=== PATIENT | female | born 2000 | race Caucasian/White ===

== ENCOUNTER → 2019-06-24 11:42 | Outpatient (CLI) | payer OTHER, SELFPAY ==
--- NOTE | 2019-06-24 11:49 | XR_ITS ---
PROCEDURE: XR CERVICAL SPINE 3V CLINICAL INDICATION: NECK PAIN COMPARISON: No exams were available for comparison FINDINGS: There is reversal of the cervical lordosis at the C4-C5 level. The disc spaces are well preserved. No fracture or dislocation. No significant degenerative change, lytic lesion, or blastic lesion. No cervical rib. IMPRESSION: Reversal of lordosis which could be due to patient positioning or muscle spasm otherwise negative Dictated by: Mike Rivera MD 06/24/2019 12:50 Electronically signed by Mike Rivera MD in [place] 06/24/2019 12:50
== END ==
PROVIDERS: PCP Family Medicine; Visit Provider Physician Assistant
DX: M54.2 Cervicalgia (principal)
CPT/HCPCS: 72040

== ENCOUNTER 2019-08-04 13:00 | Outpatient (RCR) | payer OTHER, SELFPAY ==
--- NOTE | 2019-07-26 15:21 | HMH.PTOPEV ---
PT Outpatient Evaluation Rehab PT Outpatient Evaluation Start: 07/26/19 14:31 Freq: Status: Active Protocol: Document 07/26/19 14:31 PATRICIA (Rec: 07/26/19 15:18 JENNIFERVINICIUS [id number]) Electronically Signed By Pedro Reyna, PT 07/26/19 14:31 Outpatient Therapy Subjective History Subjective History Patient is a 18 year old female presenting to outpatient PT with reports of cervical spine and B upper trapezius mm pain of insidious onset starting approximately 3 years ago. Symptoms have progressively gotten worse over the past year. No radicular symptoms to report. Poor postural awareness noted. Most recent imaging indicates reversal of cervical lordosis. Comorbidities include asthma. Chief Complaint Pain,Spasms Symptom Type Ache Symptoms Relieved By Heat Symptoms Aggravated By Sitting,Physical Activity, Lifting Prior Functional Limitations Reaching,Lifting,Housework, Sleeping,Sitting,Recreation Activity,Bending/Stooping Current Functional Limitations Reaching,Lifting,Housework, Sleeping,Sitting,Recreation Activity,Bending/Stooping Symptom Description Constant but Variable Level of pain today (0-10) 3 Pain scale - at its best (0-10) 2 Pain scale - at its worst (0-10) 7 Cervical Eval Palpation Cervical Muscles R Suboccipital,L Suboccipital, R CT Junction,L CT Junction,R Upper Trapezius,L Upper Trapezius Cervical/Thoracic Palpation Findings Tenderness Posture Head/C-Spine Posture Sitting Position C-Spine Flattened Head/C-Spine Posture Standing Position C-Spine Flattened Flexibility Deficits Upper Trapezius Muscle Length (R) Moderate Tightness,(L) Moderate Tightness Levaetor Scapulae Muscle Length (R) Moderate Tightness,(L) Moderate Tightness Pectoralis Minor Muscle Length (R) Moderate Tightness,(L) Moderate Tightness Passive Joint Mobility Cervical PIVM WNL: R OA L OA R AA L AA R C2/3
== END 2019-08-04 13:05 | disposition home or self-care (01) ==
LOC: PT 13:00
PROVIDERS: PCP Family Medicine; Visit Provider Physician Assistant
DX: M53.82 Other specified dorsopathies, cervical region (principal)
CPT/HCPCS: 20560; 97010; 97014; 97110; 97140; 97163; G0283

== ENCOUNTER → 2019-11-28 16:56 | Outpatient (CLI) | payer OTHER, SELFPAY ==
[2019-11-28 19:31] LABS: HCG,Quantitative 7502 mIU/ml (0-5.42)
== END ==
PROVIDERS: Visit Provider Obstetrics & Gynecology
DX: Z32.00 Encounter for pregnancy test, result unknown (principal)
CPT/HCPCS: 36415; 84702

== ENCOUNTER → 2019-12-09 14:11 | Outpatient (CLI) | payer OTHER, SELFPAY ==
--- NOTE | 2019-12-09 14:11 | US_ITS ---
PROCEDURE: US OB TRANSVAGINAL CLINICAL INDICATION: US OB Dates COMPARISON: No exams were available for comparison FINDINGS: An intrauterine gestational sac is present with a pole with a crown-rump length of 0.98cm correlating to gestational age of 7weeks 1day. heart tones are present with an FHR of 142bpm. Yolk sac is noted. There is a 2.9 cm right ovarian corpus luteum cyst IMPRESSION: Live IUP at 7 weeks 1 day Estimated due date by Ultrasound is 07/26/2020 Dictated by: Mike Rivera MD 12/09/2019 16:39 Electronically signed by Mike Rivera MD in [place] 12/09/2019 16:39
== END ==
PROVIDERS: PCP Family Medicine; Visit Provider Obstetrics & Gynecology
DX: O26.841 Uterine size-date discrepancy, first trimester (principal)
CPT/HCPCS: 76817

== ENCOUNTER → 2019-12-13 10:55 | Outpatient (CLI) | payer OTHER, SELFPAY ==
[2019-12-13 11:29] LABS: Basophils # 0.1 K/mm3 (0-0.2); Basophils % 0.6 % (0.1-2.0); Eosinophils # 0.4 K/mm3 (0.0-0.4); Eosinophils % 5.2 % (0.1-12.0); Hematocrit 41.2 % (37.0-47.0); Hemoglobin 14.3 g/dL (12.2-16.2); Lymphocytes # 1.6 K/mm3 (0.7-4.5); Mean Corpuscular HGB Conc 34.7 g/dL (31.8-35.4); Mean Corpuscular Hemoglobin 31.9 pg (27.0-31.2); Mean Corpuscular Volume 91.9 fl (81-99); Mean Platelet Volume 7.8 fl (7.4-10.4); Monocytes # 0.4 K/mm3 (0.1-1.0); Monocytes % 4.2 % (1.7-9.3); Neutrophils # 5.9 K/mm3 (1.8-7.8); Neutrophils % 70.9 % (37.0-80.0); Platelet Count 205 K/mm3 (142-424); Red Blood Count 4.48 M/mm3 (4.20-5.40); Red Cell Distribution Width 12.7 % (11.5-17.5); White Blood Count 8.3 K/mm3 (4.5-13.0)
[2019-12-13 15:59] LABS: Amphetamine/Metha Screen,Urine Negative ng/ml (<1000); Barbiturates Screen,Urine Negative ng/ml (<200); Benzodiazepines Screen,Urine Negative ng/ml (<200); Cannabinoid Screen,Urine Negative ng/ml (<50); Cocaine Screen,Urine Negative ng/ml (<300); Methadone Screen,Urine Negative ng/ml (<300); Opiate Screen,Urine Negative ng/ml (<300); Phencyclidine Screen,Urine Negative ng/ml (<25)
[2019-12-14 11:29] LABS: HIV Screen 4th Generation wRfx Non Reactive (Non Reactive)
[2019-12-14 13:30] LABS: Hepatitis B Surface Antigen Negative (Negative); Hepatitis C Antibody 0.1 s/co ratio (0.0-0.9); Rubella Antibodies, IgG 4.94 index (Immune >0.99)
[2019-12-15 09:39] LABS: Rapid Plasma Reagin Ab Titer Non Reactive (NonRea<1:1)
== END ==
PROVIDERS: Visit Provider Obstetrics & Gynecology
DX: Z34.90 Encounter for supervision of normal pregnancy, unspecified, unspecified trimester (principal)
CPT/HCPCS: 36415; 80305; 84443; 84702; 85025; 86592; 86703; 86762; 86850; 87340; 87380; G0432

== ENCOUNTER → 2020-07-30 14:47 | Outpatient (CLI) | payer OTHER, SELFPAY ==
--- NOTE | 2020-07-30 14:50 | US_ITS ---
PROCEDURE: US TRANSVAGINAL CLINICAL INDICATION: PELVIC PAIN COMPARISON: US US OB TRANSVAGINAL from 12/09/2019 FINDINGS: UTERUS: 8cm x 5cmx 4cm with a combined endometrial thickness of 1.7mm LEFT OVARY: 3unk5pvr3.7cm with a volume of 5ml. RIGHT OVARY: [id number] with a volume of 4.6ml. There is a small amount fluid in the cul-de-sac IMPRESSION: Small amount of cul-de-sac fluid otherwise negative pelvic ultrasound Dictated by: Mike Rivera MD 07/31/2020 18:40 Mike Rivera MD in [facility] 07/31/2020 18:40
== END ==
PROVIDERS: PCP Family Medicine; Visit Provider Nurse Practitioner Family
DX: R10.2 Pelvic and perineal pain (principal)
CPT/HCPCS: 76830

== ENCOUNTER → 2021-03-04 13:17 | Outpatient (CLI) | payer OTHER, SELFPAY ==
[2021-03-04 13:36] LABS: Basophils # 0.1 K/mm3 (0-0.2); Eosinophils # 0.3 K/mm3 (0.0-0.4); Eosinophils % 3.5 % (0.1-12.0); Hematocrit 43.5 % (37.0-47.0); Hemoglobin 14.9 g/dL (12.2-16.2); Lymphocytes # 2.5 K/mm3 (0.7-4.5); Lymphocytes % 34.1 % (10-50); Mean Corpuscular HGB Conc 34.1 g/dL (31.8-35.4); Mean Corpuscular Hemoglobin 31.5 pg (27.0-31.2); Mean Corpuscular Volume 92.3 fl (81-99); Mean Platelet Volume 8.2 fl (7.4-10.4); Monocytes # 0.3 K/mm3 (0.1-1.0); Neutrophils # 4.1 K/mm3 (1.8-7.8); Neutrophils % 57.5 % (37.0-80.0); Platelet Count 236 K/mm3 (142-424); Red Blood Count 4.71 M/mm3 (4.20-5.40); Red Cell Distribution Width 12.5 % (11.5-17.5); White Blood Count 7.2 K/mm3 (4.8-10.8)
--- NOTE | 2021-03-04 13:54 | ECG_ITS ---
APPROVED REPORT Exam: Resting ECG HR:72 bpm ECG Measurements Heart Rate 72 AXES GA 140 P 61 QRSd 74 QRS 78 QT 346 T 32 QTc 378 Conclusion Normal sinus rhythm with sinus arrhythmia Cannot rule out Anterior infarct, age undetermined Abnormal ECG Electronically signed by : Bhavin Boles MD 03/04/2021 21:18:40
[2021-03-04 14:23] LABS: Alanine Aminotransferase 10 U/L (12-78); Albumin Level 4.4 g/dl (3.5-5.0); Albumin/Globulin Ratio 1.5 (1.1-1.8); Alkaline Phosphatase 54 U/L (38-126); Anion Gap 14.1 mEq/L (5-15); Aspartate Amino Transferase 18 U/L (14-36); Bilirubin,Total 0.5 mg/dl (0.2-1.3); Blood Urea Nitrogen 10 mg/dl (7-17); Calcium 9.4 mg/dl (8.4-10.2); Carbon Dioxide 22 mmol/L (22.0-30.0); Chloride 108 mmol/L (98-107); Estimated Glomerular Filt Rate 90 ml/min (>60); GFR (African American) 109 ML/MIN (>60); Glucose 92 mg/dl (74-100); Potassium 4.1 mmoL/L (3.5-5.1); Sodium 140 mmol/L (136-145); Total Protein,Serum 7.4 g/dl (6.3-8.2)
== END ==
PROVIDERS: Visit Provider Nurse Practitioner Family
DX: R07.89 Other chest pain (principal)
CPT/HCPCS: 36415; 80053; 85025; 93005

== ENCOUNTER → 2021-03-29 12:42 | Outpatient (CLI) | payer OTHER, SELFPAY ==
--- NOTE | 2021-03-29 12:42 | CT_ITS ---
PROCEDURE: CT ANGIO CHEST PE PROTOCOL CLINCIAL INDICATION: chest pain COMPARISON: No exams were available for comparison TECHNIQUE: IV Contrast: 70ML Isovue 370 Axial images obtained with sagittal and coronal reformats. All CT scans at the facility use one or more dose reduction, viz: automated exposure control, ma/kV adjustment per patient size (including targeted exams where dose is matched to indication, i.e. head), or iterative reconstruction technique. FINDINGS: No mediastinal or hilar or adenopathy. No evidence of pulmonary embolus, aortic aneurysm, or aortic dissection.. Soft tissue density is present in the anterior mediastinum consistent residual thymic tissue. Small benign-appearing fissural nodule in the right major fissure superiorly and left major fissure superiorly at 4 mm each suggesting small lymph nodes. No suspicious nodules. No lobe infiltrates or effusions. Minimal narrowing of the proximal aspect of the celiac artery of approximately 20 percent. IMPRESSION: No acute finding. No evidence of pulmonary embolus. Nonacute findings as described above Dictated by: Mike Rivera MD 03/31/2021 10:04 Mike Rivera MD in [place] 03/31/2021 10:04
--- NOTE | 2021-03-29 14:03 | CA_ITS ---
APPROVED REPORT EXAM: Comprehensive 2D, Doppler, and color-flow Echocardiogram Freezer Assistant: Marguerite Sarmiento CRT Ht: 5 ft 2 in Wt: 114lbs BSA: 1.51 BP: 121/71 mmHg Indications: Abnormal ECG, Chest Pain, Shortness of Breath, Syncope 2D Dimensions LVOT 1.68 cm (M/F) 1.5-2.5 M-Mode Dimensions RVDd 1.89 cm (0.9-2.6) LA Diam 2.15 cm (1.9-4.0) LVDd 4.19 cm (3.5-5.7) Ao Diam 2.66 cm (2.0-3.7) LVDs 2.79 cm (3.5-5.7) IVSd 0.80 cm (0.6-1.1) PWd 0.56 cm (0.6-1.1) EF (Teich) 62.50% FS 33.40% EDV (Teich) 78.10 mL ESV (Teich) 29.30 mL LV Diastology E Decel Time 223.00 (160-240 msec) E/A Ratio 2.09 MED E' 12.90 (< 7 cm/sec) MED A' 5.30 cm/s E'/MED E' Ratio 6.48 (>14) LAT E' 13.80 (<10 cm/sec) LAT A' 4.20 cm/s E/LAT E' Ratio 6.06 (>14) Aortic Valve AO Peak GR. 5.10 mmHg Mitral Valve MV A Velocity 40.00 (40-130 cm/s) E/A Ratio 2.09 MV Decel. Time 223.00 (160-240 ms) Pulmonary Valve PV Peak Velocity 87.00 (50-150 cm/s) Tricuspid Valve TR P. Velocity 221.00 cm/s RAP Estimate 10.00 mmHg RVSP 29.60 mmHg Left Ventricle Technically difficult study, left atrium is normal size, left ventricle is normal size, there is no concentric left ventricular hypertrophy, visually estimated ejection fraction 55% with no regional wall motion abnormality, diastolic parameters are within normal range. Right Ventricle Right atrium and right ventricle are normal size and contractility. Aortic Valve Aortic valve is grossly normal, there is no aortic stenosis or aortic insufficiency. Mitral Valve Mitral valve grossly normal, there is trace mitral regurgitation. Tricuspid Valve Tricuspid valve grossly normal, there is trace tricuspid regurgitation, tricuspid regurgitation jet velocity is inadequate for calculation of the right ventricular systolic pressure. Pulmonic Valve Pulmonic valve is poorly visualized. Great Vessels Aortic root is normal size. Inferior vena cava is normal size with normal inspiratory collapse. Pericardium No significant pericardial effusion noted. Conclusion 1. Normal left ventricular size, preserved left ventricular systolic function, visually estimated ejection fraction 55% with no regional wall motion abnormality, diastolic parameters are within normal range. 2. Trace mitral and tricuspid regurgitation. 3. No significant pericardial effusion noted. 4. Inferior vena cava is normal size with normal inspiratory collapse. Electronically signed by : Cortez Mckeon MD 04/02/2021 05:55:33
== END ==
PROVIDERS: PCP Family Medicine; Visit Provider Internal Medicine Cardiovascular Disease
DX: R07.9 Chest pain, unspecified (principal); R42 Dizziness and giddiness; R55 Syncope and collapse
CPT/HCPCS: 71275; 93306; Q9967

== ENCOUNTER → 2021-06-11 13:36 | Outpatient (CLI) | payer OTHER, SELFPAY | PROVIDERS: Visit Provider Nurse Practitioner | DX: Z20.822 Contact with and (suspected) exposure to COVID-19 (principal) | CPT/HCPCS: C9803; U0003; U0005 ==

== ENCOUNTER → 2021-08-30 08:53 | Outpatient (CLI) | payer OTHER, SELFPAY ==
--- NOTE | 2021-08-30 08:56 | CT_ITS ---
FINAL REPORT TECHNIQUE: Axial CT images of the abdomen and pelvis were obtained before and after the administration of IV contrast. Oral contrast was administered.This study was performed with techniques to keep radiation doses as low as reasonably achievable (ALARA). Individualized dose reduction techniques using automated exposure control or adjustment of mA and/or kV according to the patient''s size were employed. CLINICAL HISTORY: ABD PAIN X MANY YEARS. COMPARISON: 10/25/2017 FINDINGS: Abdomen: The lung bases are clear. The heart is normal in size. The liver has an unremarkable appearance, without evidence of mass or biliary duct dilatation. There are multiple cholesterol gallstones with gallbladder wall thickening. Cholecystitis not excluded. Nuclear medicine hepatic biliary scan may be helpful if clinically indicated. The spleen is unremarkable. No adrenal masses present. The pancreas has an unremarkable appearance. The kidneys enhance normally. The aorta is normal in caliber. There is no free fluid or adenopathy. No mass or abnormal fluid collection is seen. Precontrast images demonstrate no evidence of nephrolithiasis. Pelvis: Partially visualized appendix is normal. The urinary bladder is unremarkable. There is a small amount of pelvic free fluid which may be physiologic or reactive. There is a 12 mm, presumed corpus luteal cyst in the right ovary. A 12 mm uterine fundal mass with heterogeneous enhancement is seen, favor fibroid. There is no evidence of bowel obstruction. IMPRESSION: Cholesterol gallstones with gallbladder wall thickening. Cholecystitis not excluded. This could be further evaluated with nuclear medicine hepatobiliary scan. Presumed right ovarian cyst. 12 mm uterine fundal mass with heterogeneous enhancement, favor fibroid. Recommend follow-up pelvic ultrasound. Reviewed, Interpreted and Dictated by Crow Umana III, MD Transcribed by Harini Dwyer Authenticated by Crow Umana III, MD on 08/30/2021 11:11:51 AM [facility]
== END ==
PROVIDERS: PCP Family Medicine; Visit Provider Family Medicine
DX: R10.84 Generalized abdominal pain (principal)
CPT/HCPCS: 74178; Q9967

== ENCOUNTER → 2021-12-19 08:29 | Outpatient (CLI) | payer OTHER, SELFPAY ==
--- NOTE | 2021-12-19 08:30 | US_ITS ---
FINAL REPORT TECHNIQUE: Sonographic images of the right upper quadrant were obtained. CLINICAL HISTORY: RUQ pain FINDINGS: The liver is homogeneous. There is no focal hepatic lesion or intrahepatic biliary dilatation. The gallbladder is stone filled. There is no pericholecystic fluid collection or gallbladder wall thickening. The common duct measures 5 mm which is within normal limits. The pancreatic tail is partially obscured by bowel gas. Otherwise, it has a normal appearance. The right kidney measures 10.5 cm in zglg-xi-beby length. There is no hydronephrosis, mass, or stone. There is no right upper quadrant ascites. IMPRESSION: Stone filled gallbladder. Normal common duct. Reviewed, Interpreted and Dictated by Mercy Hines MD Transcribed by Norman Parkinson Authenticated and [facility]
== END ==
PROVIDERS: PCP Family Medicine; Visit Provider Surgery
DX: R10.11 Right upper quadrant pain (principal)
CPT/HCPCS: 76705

== ENCOUNTER 2022-03-04 14:36 | Emergency (ER) | payer OTHER, SELFPAY ==
[2022-03-04 14:40] VITALS: BP 120/79; PULSE 114; RESP 22; TEMP 37.3; O2SAT 96; BMI 22.1
[2022-03-04 15:00] LABS: UTC Influenza A Antigen Negative (Negative)
[2022-03-04 15:01] LABS: UTC Influenza B Antigen Negative (Negative)
[2022-03-04 15:05] VITALS: BP 120/79; PULSE 114; RESP 22; TEMP 37.3; O2SAT 96
--- NOTE | 2022-03-04 15:19 | EXP.UTC ---
Discharge Plan Disposition Patient Disposition: Home, Self-Care Condition: Good Prescriptions Prescriptions: New emxejathzgkamiy-csymuvbfq-CI [Bromfed DM] 2-30-10 mg/5 mL syrup 10 ml PO Q6H PRN (Reason: cold symptoms) Qty: 200 0RF ondansetron 4 mg tablet,disintegrating 4 mg PO Q8H 4 Days Qty: 12 0RF No Action albuterol sulfate [ProAir HFA] 90 mcg/actuation HFA aerosol inhaler 1 puff INHALATION Q6HP PRN (Reason: ASTHMA) Referrals Follow up/Referrals: Irwin Cisneros MD [Primary Care Provider] - See instructions Clinical Impressions Clinical Impression: Viral illness Stand Alone Forms Stand Alone Forms: Work/School Release Instructions Patient Instructions: DI for Viral Syndrome Discharge ED Provider: Roseanne Lee [facility] General Stated complaint: Fever, BA, ANDRE, Nausea Mode of Arrival: Ambulatory Source of Information: Patient Limitations: No Limitations Time Seen by Provider: 03/04/22 15:19 Description of Symptoms (Recalled from Triage Doc. by RN): PATIENT C/O FEVER, HEADACHE, BODY ACHES, NAUSEA AND VOMITING THAT STARTED YESTERDAY HEENT Symptoms (Recalled from RN notes): Yes Resp Symptoms (Recalled from RN notes): No Skin Symptoms (Recalled from RN notes): No MS Symptoms (Recalled from RN notes): No Functional Status (Recalled from RN notes): WNL History of Present Illness Provider Complaint: Pt states that she started running a fever up to 101 yesterday. She has had a headache, nausea, vomiting, body aches, clear sinus drainage, and cough. She has taken Tylenol/Ibuprofen, and DayQuil for her symptoms. She denies any known illness contact. Related Data Home Medications Medication Instructions Recorded Confirmed albuterol sulfate 90 mcg/actuation 1 puff inhalation Q6HP PRN ASTHMA 01/15/18 03/04/22 aerosol inhaler (ProAir HFA) Previous Rx's Medication Instructions Recorded hazwtzfqnrqmspx-twqouvaveyopxnq-OB 10 ml PO Q6H PRN cold symptoms 03/04/22 2 mg-30 mg-10 mg/5 mL oral syrup #200 mL (Bromfed DM) ondansetron 4 mg disintegrating 4 mg PO Q8H 4 days #12 tabs 03/04/22 tablet Allergies Allergy/AdvReac Type Severity Reaction Status Date / Time polyethylene glycol 3350 Allergy Verified 09/24/21 11:06 [From Miralax] Worker's Comp Is this a Worker's Comp case?: No PFSH PFSH Medical History (Updated 03/04/22 @ 15:37 by Roseanne Lee APRN) Asthma Social History (Updated 03/04/22 @ 14:52 by Anjali Oconnell RN) Smoking Status: Never smoker alcohol intake: never substance use type: denies use current occupational status: employed Travel in the last 8 weeks: None ROS Obtained: Yes All systems reviewed & no additional complaints except as documented Constitutional Constitutional: Reports as per HPI, Reports body ache, Reports chills, Reports fatigue, Reports fever(s), Reports headache(s) and Reports malaise Eyes Eyes: Reports system reviewed and no additional complaints, except as documented ENT Ears, Nose, Mouth, and Throat: Reports as per HPI, Reports headache(s), Reports nasal congestion and Reports nasal discharge Cardiovascular Cardiovascular: Reports system reviewed and no additional complaints, except as documented Respiratory Respiratory: Reports as per HPI and Reports non-productive cough Gastrointestinal Gastrointestingal: Reports as per HPI, nausea and vomiting Genitourinary Female Genitourinary: Reports system reviewed and no additional complaints, except as documented Musculoskeletal Musculoskeletal: Reports as per HPI and Reports myalgias Integumentary/Breasts Skin/Breast: Reports system reviewed and no additional complaints, except as documented Neurologic Neurologic: Reports system reviewed and no additional complaints, except as documented and Reports headache(s) Endocrine Endocrine: Reports system reviewed and no additional complaints, except as documented and Reports fatigue Hematologic/Lymphatic Henatologic/Lym
[2022-03-04 16:16] LABS: Adenovirus,PCR Not Detected (NotDetected); Bordetella Pertussis Not Detected (NotDetected); Chlamydophila Pneumoniae, PCR Not Detected (NotDetected); Coronavirus 229E Not Detected (NotDetected); Coronavirus NL63 Not Detected (NotDetected); Coronavirus OC43 Not Detected (NotDetected); Coronovirus HKU1,PCR Not Detected (NotDetected); Human Metapneumovirus Not Detected (NotDetected); Influenza A, PCR Not Detected (NotDetected); Influenza AH1, 2009 Not Detected (NotDetected); Influenza AH1, PCR Not Detected (NotDetected); Influenza AH3,PCR Not Detected (NotDetected); Influenza B, PCR Not Detected (NotDetected); Mycoplasma Pneumoniae, PCR Not Detected (NotDetected); Parainfluenza 1, PCR Not Detected (NotDetected); Parainfluenza 2, PCR Not Detected (NotDetected); Parainfluenza 3, PCR Not Detected (NotDetected); Parainfluenza 4, PCR Not Detected (NotDetected); Respiratory Syncytial Virus Not Detected (NotDetected); Rhinovirus/Enterovirus Not Detected (NotDetected)
[2022-03-04 21:50] LABS: Coronavirus 19, PCR Detected (NotDetected)
== END 2022-03-04 15:43 | disposition home or self-care (01) ==
PROVIDERS: Emergency Provider Nurse Practitioner Family; PCP Family Medicine
DX: U07.1 COVID-19 (principal)
CPT/HCPCS: 87581; 87632; 87798; 87804; 99212; C9803; G0463; U0003; U0005

== ENCOUNTER 2022-04-12 10:28 | Emergency (ER) | payer OTHER, SELFPAY ==
--- NOTE | 2022-04-12 10:59 | EXP.UTC ---
Discharge Plan Disposition Patient Disposition: Home, Self-Care Condition: Good Prescriptions Prescriptions: New azithromycin [Zithromax] 250 mg tablet 250 mg PO UD DOSE PK Qty: 6 0RF Rx Instructions: Take two (2) tablets today, then one (1) tablet days #2 thru #5 methylprednisolone 4 mg Tablets,Dose Pack 4 mg PO DIRECTED Qty: 21 0RF gyjvrxhgcwwkuja-ugruppgdk-FZ [Bromfed DM] 2-30-10 mg/5 mL Syrup 5 ml PO Q6H PRN (Reason: Cough) Qty: 240 0RF No Action albuterol sulfate [Ventolin HFA] 90 mcg/actuation HFA aerosol inhaler 1 mcg INHALATION NEEDED PRN (Reason: asthma) Label Comments: INHALE 1-2 PUFF(S) BY MOUTH EVERY 4 HOURS NEEDED --SHAKE WELL BEFORE USE-- Referrals Follow up/Referrals: Irwin Cisneros MD [Primary Care Provider] - See instructions Activity Restrictions/Add. Instructions Additional Instructions/Restrictions: Drink plenty of fluids. Take tylenol or ibuprofen for pain or fever. Take the medications as directed. Follow up with your regular doctor. GO TO THE ER FOR ANY WORSENING SYMPTOMS Clinical Impressions Clinical Impression: Asthma exacerbation, Viral syndrome Stand Alone Forms Stand Alone Forms: Work/School Release Instructions Patient Instructions: DI for Asthma -- Adult, DI for Viral Syndrome Discharge ED Provider: Saud Wesley [facility] General Stated complaint: Congestion Time Seen by Provider: 04/12/22 10:58 History of Present Illness Provider Complaint: She states that for the past 2 days she has had a cough, chest tightness and wheezing. She has a history of asthma. She states that her rescue inhaler has not helped her breathing as much as it normally does. She denies any fever. Related Data Home Medications Medication Instructions Recorded Confirmed albuterol sulfate 90 mcg/actuation 1 mcg inhalation NEEDED PRN 04/10/22 04/10/22 aerosol inhaler (Ventolin HFA) asthma Previous Rx's Medication Instructions Recorded azithromycin 250 mg tablet 250 mg PO UD DOSE PK #6 tabs 04/12/22 (Zithromax) kdwyhmbjjhbstyo-vlmzqrktceepmsa-JZ 5 ml PO Q6H PRN Cough #240 mL 04/12/22 2 mg-30 mg-10 mg/5 mL oral syrup (Bromfed DM) methylprednisolone 4 mg tablets in 4 mg PO DIRECTED #21 tabs 04/12/22 a dose pack Allergies Allergy/AdvReac Type Severity Reaction Status Date / Time polyethylene glycol 3350 Allergy Nausea Verified 04/12/22 11:24 [From Miralax] [facility] Medical History Asthma Surgical History History of colonoscopy Family History Other No significant family history Social History Smoking Status: Never smoker alcohol intake: never substance use type: denies use current occupational status: employed Travel in the last 8 weeks: None ROS Obtained: Yes All systems reviewed & no additional complaints except as documented Constitutional Constitutional: Reports chills and Reports fever(s) Eyes Eyes: Denies eye discharge ENT Ears, Nose, Mouth, and Throat: Reports as per HPI Cardiovascular Cardiovascular: Denies chest pain Respiratory Respiratory: Denies chest congestion and Reports cough Gastrointestinal Gastrointestingal: Reports nausea; Denies abdominal pain, constipation, cramping, diarrhea or vomiting Musculoskeletal Musculoskeletal: Denies arthralgias Integumentary/Breasts Skin/Breast: Denies rash Neurologic Neurologic: Denies paresthesias Physical Exam General General appearance: alert and in no apparent distress Head Head exam: atraumatic, normocephalic and normal inspection Eye Eye exam: Present normal appearance, PERRL and EOMI ENT ENT exam: Present normal exam, normal oropharynx, mucous membranes moist, TM's normal bilaterally and normal external ear exam
--- NOTE | 2022-04-12 11:17 | XR_ITS ---
PROCEDURE INFORMATION: Exam: XR Chest Exam date and time: 04/12/2022 11:17 AM Age: 21 years old Clinical indication: Shortness of breath; Additional info: SOB TECHNIQUE: Imaging protocol: Radiologic exam of the chest. Views: 2 views. COMPARISON: CT ANGIO CHEST PE PROTOCOL 03/29/2021 1:50 PM FINDINGS: Lungs: No focal airspace disease. Pleural spaces: Unremarkable. No pleural effusion. No pneumothorax. Heart/Mediastinum: Cardiomediastinal silhouette is within normal limits. Bones/joints: Unremarkable. IMPRESSION: No acute cardiopulmonary abnormality.
[2022-04-12 11:21] VITALS: BP 130/76; PULSE 123; RESP 20; TEMP 37.2; O2SAT 96; BMI 21.5
[2022-04-12 11:58] LABS: UTC Influenza A Antigen Negative (Negative); UTC Influenza B Antigen Negative (Negative)
[2022-04-12 11:59] LABS: UTC Strep Screen (Rapid) Negative (Negative)
[2022-04-12 12:11] VITALS: BP 130/76; PULSE 123; RESP 20; TEMP 37.2
[2022-04-12 15:05] LABS: Adenovirus,PCR Not Detected (NotDetected); Bordetella Pertussis Not Detected (NotDetected); Chlamydophila Pneumoniae, PCR Not Detected (NotDetected); Coronavirus 19, PCR Not Detected (NotDetected); Coronavirus 229E Not Detected (NotDetected); Coronavirus NL63 Not Detected (NotDetected); Coronavirus OC43 Not Detected (NotDetected); Coronovirus HKU1,PCR Not Detected (NotDetected); Human Metapneumovirus Not Detected (NotDetected); Influenza A, PCR Not Detected (NotDetected); Influenza AH1, 2009 Not Detected (NotDetected); Influenza AH1, PCR Not Detected (NotDetected); Influenza AH3,PCR Not Detected (NotDetected); Influenza B, PCR Not Detected (NotDetected); Mycoplasma Pneumoniae, PCR Not Detected (NotDetected); Parainfluenza 1, PCR Not Detected (NotDetected); Parainfluenza 2, PCR Not Detected (NotDetected); Parainfluenza 3, PCR Not Detected (NotDetected); Parainfluenza 4, PCR Not Detected (NotDetected); Respiratory Syncytial Virus Not Detected (NotDetected)
[2022-04-12 23:54] LABS: Rhinovirus/Enterovirus Detected (NotDetected)
== END 2022-04-12 12:12 | disposition home or self-care (01) ==
PROVIDERS: Emergency Provider Nurse Practitioner Family; PCP Family Medicine
DX: J45.901 Unspecified asthma with (acute) exacerbation (principal); B34.8 Other viral infections of unspecified site
CPT/HCPCS: 71046; 87581; 87632; 87798; 87804; 87880; 99213; C9803; G0463; U0003; U0005

== ENCOUNTER 2022-04-14 06:03 | Day surgery (SDC) | payer OTHER, SELFPAY ==
[2022-04-14] VITALS (9 sets, daily range): BP systolic 109–139; BP diastolic 63–94; PULSE 81–113; RESP 14–18; TEMP 36.1–43; O2SAT 92–98; BMI 21.4
[2022-04-14 06:45] LABS: Basophils % 0.2 % (0.1-2.0); Hematocrit 42.9 % (37.0-47.0); Hemoglobin 14.2 g/dL (12.2-16.2); Lymphocytes % 7.6 % (10-50); Mean Corpuscular HGB Conc 33.1 g/dL (31.8-35.4); Mean Corpuscular Hemoglobin 30.6 pg (27.0-31.2); Mean Corpuscular Volume 92.5 fl (81-99); Mean Platelet Volume 8.6 fl (7.4-10.4); Monocytes # 0.5 K/mm3 (0.1-1.0); Monocytes % 3.5 % (1.7-9.3); Neutrophils # 11.4 K/mm3 (1.8-7.8); Neutrophils % 88.7 % (37.0-80.0); Platelet Count 285 K/mm3 (142-424); Red Blood Count 4.64 M/mm3 (4.20-5.40); Red Cell Distribution Width 12.5 % (11.5-17.5); White Blood Count 12.9 K/mm3 (4.8-10.8)
[2022-04-14 06:46] LABS: Urine Pregnancy, HCG Qual. Negative (Negative)
[2022-04-14 06:52] LABS: MANUAL DIFFERENTIAL MANUAL DIFFERENTIAL (MANUAL DIFF)
[2022-04-14 06:55] LABS: Alanine Aminotransferase 21 U/L (12-78); Albumin Level 4.7 g/dl (3.5-5.0); Albumin/Globulin Ratio 1.4 (1.1-1.8); Alkaline Phosphatase 93 U/L (38-126); Aspartate Amino Transferase 21 U/L (14-36); Bilirubin,Total 0.6 mg/dl (0.2-1.3); Blood Urea Nitrogen 13 mg/dl (7-17); Calcium 9.9 mg/dl (8.4-10.2); Carbon Dioxide 25 mmol/L (22.0-30.0); Chloride 102 mmol/L (98-107); Creatinine Clearance Estimated 92 mL/min (50-200); Estimated Glomerular Filt Rate 89 ml/min (>60); GFR (African American) 108 ML/MIN (>60); Globulin 3.4 g/dL (1.3-3.2); Glucose 118 mg/dl (74-100); Sodium 141 mmol/L (136-145); Total Protein,Serum 8.1 g/dl (6.3-8.2)
--- NOTE | 2022-04-14 07:20 | XR_ITS ---
PROCEDURE INFORMATION: Exam: XR Chest Exam date and time: 04/14/2022 7:21 AM Age: 21 years old Clinical indication: Cough; Additional info: Preop, cough TECHNIQUE: Imaging protocol: Radiologic exam of the chest. Views: 1 view. COMPARISON: CR XR CHEST 2V 04/12/2022 11:17 AM FINDINGS: Lungs: Unremarkable. No consolidation. Pleural spaces: Unremarkable. No pleural effusion. No pneumothorax. Heart/Mediastinum: Unremarkable. No cardiomegaly. Bones/joints: Unremarkable. IMPRESSION: No acute findings.
[2022-04-14 07:28] LABS: Lymphocytes % 6 % (10-50); Monocytes % 4 % (2-9); Neutrophils % 90 % (42-76); Platelet Estimate Normal; RBC Morphology Normal; Total Cells Counted 100
--- NOTE | 2022-04-14 08:06 | EXP.ANES.CKL ---
[facility] Medical History Asthma Surgical History History of colonoscopy Family History Other No significant family history Social History Smoking Status: Never smoker alcohol intake: never substance use type: denies use current occupational status: employed Travel in the last 8 weeks: None [facility] Anesthesia Checklist Patient Identification Patient Identification: Verbal (Name & ) Structural Data Planned Operative Procedure/s: Laparascopic Cholecystectomy Consent for Planned Operative Procedure(s) Verified: Yes Verified Documents: Surgical Consent NPO Status Verified Time NPO: 00:00 Chart Verification Results Verified: ECG Additional verifications Anesthesia Reactions: No Hx Blood Transfusions: No Blood Transfusion Reaction: No Airway Assessment C-Spine Mobility Assessed: Yes TMJ Mobility Assessed: Yes Dentition: Good Dentition Neurological Assessment Level of Consciousness: Awake, Alert and Appropriate Anesthesia Plan ASA Class: II Anesthesia Type: General
--- NOTE | 2022-04-14 09:05 | EXP.OP.NOTE ---
Date of procedure: 04/14/22 Pre-op Diagnosis:: Symptomatic gallstones Post-op Diagnosis:: Same Procedure performed:: Laparoscopic cholecystectomy Surgeon:: Crow Zurita MD ROLL FORMING MACHINE OPERATOR:: Alpesh Huizar Anesthesia: LINDA Estimated blood loss (mL): 20 Clinical Note:: Patient is a very pleasant 21-year-old female whom I had seen as a consultation for gallbladder several months ago as a referral from [facility].? She is from [place].? 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 She describes some abdominal pain for years.? She does state that the previous work-up was nondiagnostic.? She had a CT scan of the abdomen pelvis with contrast which revealed cholesterol gallstones with gallbladder wall thickening .? She describes pain in the right upper quadrant and right flank area.? This often persists for about 30 to 45 minutes.? She has associated nausea.? It occurs sporadically about every other day.? It is not necessarily related to eating.? After my initial consultation when I had seen her several months ago I ordered a gallbladder ultrasound.? This reveals stone filled gallbladder with normal common bile duct.? Of note, review of the record reveals that in 2018 she had some nausea and vomiting.? She had been seen in the emergency department a couple of months later in October 2017 with right-sided abdominal pain.? Of note, the patient did have positivity for COVID on 03/04/2022. She wished to pursue cholecystectomy. Of note, the patient did present to the [facility] 2 days prior to scheduled surgery with some respiratory complaints. She had a mild leukocytosis of 12,000. Chest x-ray was normal. Her symptoms had resolved by the time she presented for surgery. She underwent repeat chest x-ray which was unremarkable. Risks and benefits were explained to her including the potential for exacerbation of bronchitis/upper respiratory infection. She wished to pursue surgery. Operative findings:: She had mild fatty infiltration of the liver. She had contracted gallbladder completely filled with numerous, too numerous to count gallstones Operative note:: Patient was taken to the operating room. She was given preoperative intravenous antibiotics. In the operating room she was placed in a supine position. General anesthesia was induced via endotracheal tube. Abdomen was prepped and draped in the standard surgical fashion. Subumbilical incision was made in her previous laparoscopy scar. While performing abdominal wall lift Veress needle was inserted. CO2 pneumoperitoneum was achieved to 15 mmHg. 11 mm optical trocar was inserted at the umbilicus. Intraperitoneal contents were visualized. She was positioned in reverse Trendelenburg left side down. A couple 5 mm trochars were inserted in the right abdomen. 10 mm trocar was inserted in the epigastrium. Gallbladder was immediately identified and found to have evidence of chronic cholecystitis with some thickening of the gallbladder. It was grasped and retracted anteriorly over the dome of the liver. Gallbladder was contracted and completely filled with too numerous to count gallstones. Infundibulum/Haile's pouch the gallbladder was retracted anterior laterally. Blunt dissection was carried out at the neck of the gallbladder bluntly incising the visceral peritoneum. Dissection was carried out ultimately identifying the cystic duct and cystic artery. Cystic duct was isolated, it was multiply clipped, and sharply divided. Cystic artery was carefully coagulated with PAULY ultrasonic robotic tiffany and divided. Gallbladder was dissected free from the liver in a retrograde fashion using PAULY ultrasonic harmonic tiffany. Gallbladder was placed within an Endo Catch retrieval device and removed from the peritoneal cavity via the umbilical trocar site which required some extension of the fascial incision for delivery. Gallbladder fossa was then inspected for hemostasis which was assured. Limited irrigation was perform
--- NOTE | 2022-04-14 10:07 | PC.NURSE ---
0942-detailed report called to ARIE Garvin 0942-pt transported to post op via stretcher w/doe rails up and left in care of ARIE Garvin with bed locked in lowest position, vss, pt stable
--- NOTE | 2022-04-14 10:08 | EXP.ANES.II ---
[facility] Anesthesia Record Part II Anesthesia Record Part II Discharge Time: 09:42 Destination: [facility] (OP Surgery) PACU nurse assessment reviewed?: Yes Patient Condition:: Good Anesthesia Complications:: None Swallowing reflex intact?: Yes Cyanosis?: No Blood Pressure: 139/91 Pulse Rate: 101 Temperature: 97.5 F Mental Status: Alert & Oriented Pain level:: 0 Nausea and/or vomitting:: None Intake, IV Amount: 0
== END 2022-04-14 10:15 | disposition home or self-care (01) ==
PROVIDERS: PCP Family Medicine; Visit Provider Surgery
PROC: 0FT44ZZ Resection of Gallbladder, Percutaneous Endoscopic Approach (ICD-10-PCS; CPT 47562; principal; 2022-04-14 07:30)
DX: Z79.899 Other long term (current) drug therapy; K80.10 Calculus of gallbladder with chronic cholecystitis without obstruction
CPT/HCPCS: 47562; 71045; 80053; 81025; 85007; 85025; 96374; J2405